=== PATIENT | female | born 1945 | race Caucasian/White ===

== ENCOUNTER 2024-10-20 13:46 | Outpatient (REF) | payer MEDICARE, SELFPAY ==
--- OUTSIDE RECORDS SUMMARY | 2024-10-20 07:45 | XMS_ITS ---
Author Organization Edilberto Cedeno MD Address [address] [place], [place] [id number] Care Team Providers Care Sleever Name Role Phone Edilberto Cedeno Primary Care Provider [phone] Allergies Allergen (clinical drug ingredient) Drug/Non Drug Allergy documented on EMR Reaction Allergy Type Onset Date Status nitroglycerin NTG (uncoded) unresponsive Allergy Active REASON FOR VISIT ? Food poisoning not vomiting gassy positive for Covid 09-30-24, Accompanied by daughter Medications Medication SIG (Take, Route, Frequency, Duration) Notes Start Date End Date Status Cranberry Fruit 475 MG Orally Active Fish Oil 1200 MG 1 capsule Orally Onc e a day Active Methenamine Hippurate 1 GM 1 tablet Orally Twice a day Active Aspir-81 81 MG 1 tablet Orally Once a day Not-Taking Multi-Day 1 tablet Orally Once a day Active Magnesium 200 MG 2 tablets with a kevin l Orally Once a day for 30 day(s) Active Calcium + D 500-1000-40 MG-UNT-MCG Orally Active Milk Thistle 200 MG 2 caps BID Active Problems Problem Type SNOMED Code ICD Code Onset Dates Problem Status W/U Status Risk Notes Problem Diverticulitis (18359952) Diverticulitis (K57.92) Active confirmed Vital Signs Blood pressure systolic 100 mm Hg 10/21/19 25 Blood pressure diastolic 62 mm Hg 025 Height 68 in 10/20/2024 Weight 137 lbs 10/20/2024 BMI 20.83 kg/m2 10/20/2024 weight is down 3 pounds sin e 06-16-24 Encounters Encounter Location Date Provider Diagnosis Edilberto Cedeno MD [address] [place] [address] [place] [phone] 10/20/2024 Edilberto Cedeno Palpitation R00.2 ; Diverticulitis K57.92 and Blood tests prior to treatment or procedure Z01.812 Assessments Encounter Date Diagnosis (ICD Code) Assessment Notes Treatment Notes Treatment Clinical Notes Section Notes 10/20/2024 Palpitation (ICD-10 - R00.2) not clear as to the couse of that will observe 10/20/2024 Diverticulitis (ICD-10 - K57.92) pending diagnostic testing, order faxed to [facility] 10/20/2024 Blood tests prior to treatment or procedure (ICD-10 - Z01.812) Plan Of Treatment Treatment Notes Assessment Notes Palpitation not clear as to the couse of that will observe Diverticulitis pending diagnostic t esting, order faxed to [facility] Pending Test Test Name Order Date CT ABD & PELVIS WITH CONTRAST 10/20/2024 Blood Urea Nitrogen 10/20/2024 Creatinine 10/20/2024 Next Appt Details Follow Up: 2 - 3 Days, Reaso n: Provider Name:Edilberto arroyo, 10/23/2024 11:45:00 AM, [address] [place] [address], [address] [place] [address], [phone], Provider Name:Edilberto arroyo, 02/05/2025 07:15:00 AM, [address] [place] [address], [address], [phone], Provider Name:Edilberto arroyo, 02/12/2025 01:00:00 PM, [address] [place] [address], [address], [phone], Progress Notes * Martha MORALES DDOB:[birth year] (79 yo F)Acc No.[id number]:10/20/2024 Progress Notes Patient: Martha ERIC Provider: Judson Cedeno MD :1945 A ge:79 Y S ex:Female Date:10/20/2024 Address: [address], [place], [id number] Subjective: * Chief Complaints: * 1 . ? Food poisoning not vomiting gassy positive for Covid 7-8-25. 2. Accompanied by daughter. * HPI: S ymptom(s): patient is a 79 yo female had covid 7/8 didn't take paxlovid/ not vomiting. had a little nausea. eating causes pain in stomach and gas. took mom because was constipated first. took tums. and it helped a little. stool is not normal small brown stools. been going on for 3 days. heart was going fast when she was carrying paint up and down stairs. * ROS: G eneral/Constitutional: Denies C hills. D enies F atigue. D enies F ever. D enies H eadache. E NT: Denies S ore throat. R espiratory: Denies C ough. D enies S hortness of breath at rest. D enies S hortness of breath with exertion. G astrointestinal: Admits A bdominal pain. A dmits D iarrhea. A dmits N ausea. D enies V omiting. 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 Beck, Colonoscopy with Dr Agudelo done 04/23/17 - repeat 10 years. * Medications: T aking Milk Thistle 200 MG Capsule 2 caps BID , Taking Magnesium 200 MG Tablet 2 tablets with a meal Orally Once a day , Taking Calcium + D 500-1000-40 MG-UNT-MCG Tablet Chewable Orally , Taking Cranberry Fruit 475 MG Capsule Orally , Taking Fish Oil 1200 MG Capsule 1 capsule Orally Once a day , Taking Multi-Day Tablet 1 tablet Orally Once a day , Taking Methenamine Hippurate 1 GM Tablet 1 tablet Orally Twice a day , Not-Taking/PRN Aspir-81 81 MG Tablet Delayed Release 1 tablet Orally Once a day * Allergies: N TG: unresponsive. Objective: * Vitals: H t: 68, Wt: 137, BMI:20.83, BP:100/62, Wt-k.14. weight is down 3 pounds since 06-16-24. * Examination: G eneral Examination: GENERAL APPEARANCE: a lert, well hydrated, in no distress.? HEAD: n ormocephalic. SKIN: g ood turgor. HEART: n o murmurs, rubs, gallops, regular rate and rhythm.? LUNGS: n o wheezes, rales, rhonchi, good air movement, clear to auscultation bilaterally. ABDOMEN: a bnormal with mild diffuse tenderness. no rebound. Assessment: * Assessment: 1. P alpitation - R00.2 (Primary) 2 . D iverticulitis - K57.92 ?3. B lood tests prior to treatment or procedure - Z01.812 Plan: * Treatment: 2. D iverticulitis I maging: CT ABD & PELVIS WITH CONTRAST Notes: pending diagnostic testing, order faxed to [facility] 3. B lood tests prior to treatment or procedure L AB: Blood Urea Nitrogen L AB: Creatinine * Procedure Codes: 3 6415 VENIPUNCT, ROUTINE* * Follow Up: 2 - 3 Days * * The named appointment provid er may or may not be the originator of this progress note, and it is not deemed complete until electronically signed by the appointment provider. Sign off status: Pending * Provider: Judson Cedeno MD Date: 10/20/2024 Generated for Boo barrera/Jarad/eTransmitting on: 10/20/2024 02:35 PM EDT History and Physical Notes * HPI (History of Present Illness) Category Sub-Category Detail Notes Category Not es Symptom(s) patient is a 79 yo female had covid 80 didn't take paxlovid/ not vomiting. had a little nausea. eating causes pain in stomach and gas. took mom because was constipated first. took tums. and it helped a little. stool is not normal small brown stools. been going on for 3 days. heart was going fast when she was carrying paint up and down stairs. Examination Category Sub-Category Detail Notes Category Not es General Examination GENERAL APPEARANCE: alert, w ell hydrated, in no distress HEAD: normocephalic HEART: no murmurs, rubs, ga llops, regular rate and rhythm LUNGS: no wheezes, rales, r honchi, good air movement, clear to auscultation bilaterally ABDOMEN: abnormal with mild d iffuse tenderness. no rebound SKIN: good turgor
--- OUTSIDE RECORDS SUMMARY | 2024-10-20 14:35 | XMS_ITS | Encounter Summary ---
Author Organization [facility] Address [address] [place] [address] Phone Care Team Providers Care Paramedic Supervisor Name Role Phone Ermias Perez MD Unavailable Chai Welch MD Unavailable Deonna Swain PA-C Unavailable Deonna Chandra MD Unavailable Eliot Youssef MD Unavailable Rasheeda Nelson ADMINISTRATIVE SUPPORT ASSOCIATE Unavailable Radha Monique ADMINISTRATIVE SUPPORT ASSOCIATE Unavailable [phone] Edilberto Cedeno MD Unavailable Francisco Calderon MD Unavailable [phone] Oleg Castano MD Unavailable Chad Alberto MD Unavailable [phone] Lasha Putnam MD Unavailable Marquise Moss MD Unavailable Edilberto Cedeno MD Primary Care Provider Encounter Details Date Type Department Care Team (Late st Contact Info) Description 05/02/2020 Procedure Pass Echo Lab [address] [place] [address] Social History Tobacco Use Types Packs/Day Years Used Date Smoking Tobacco: Former Smokeless Tobacco: Never Alcohol Use Standard Drinks/Week Comments Yes 7 (1 standard drink = 0.6 oz pur e alcohol) Comments No Sex and Gender Information Value Date Recorded Sex Assigned at Not on file Legal Sex Female 5:19 PM EST Gender Identity Not on file Sexual Orientation Not on file documented as of this encounter Plan of Treatment Upcoming Encounters Date Type Department Care Team (Late st Contact Info) Description 01/23/2024 Procedure Pass [facility] [address] [place] [address] 11/20/2024 12:45 PM EDT Appointment Echo Lab [address] [place] [address] Jazzmine Lo PA-C [address] [place] [address] 12/18/2024 2:00 PM EDT Office Visit [facility] [address] [place] [address] [address] Floor, [address] [place] [address] Meghan Akhtar CNP [address] [place] [address] 04/02/2025 1:15 PM EST Appointment [facility] [address] [place] [address] Ab Phan MD [address] [place] [address] documented as of this encounter Visit Diagnoses Not on filedocumented in this encounter Additional Health Concerns 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/01/2017 10/20/2022 1:21 AM EDT documented as of this encounter Care Teams Paramedic Supervisor Relationship Specialty Start Date End Date Edilberto Cedeno MD [address] [place] [address] [place] [address] PCP - General Internal Medicine 02/14/17 Ermias Perez MD [address] [place] [address] [email or web address] Historical LMR Provider 01/08/17 04/02/21 Chai Welch MD [address] [place] [address], [address] [place] [address] [email or web address] Historical LMR Provider 01/08/17 04/02/21 Deonna Swain PA-C [address] [place] [address] [email or web address] Historical LMR Provider 01/08/17 04/02/21 Deonna Chandra MD [address] [place] [address], [address] [place] [address] [email or web address] Historical LMR Provider 01/08/17 2 Eliot Youssef MD [address] [place] [address], [address] [place] [address] [email or web address] Historical LMR Provider 01/08/17 Rasheeda Nelson NP [address] [place] [address] [email or web address] Historical LMR Provider 01/08/17 2 Radha Monique NP [address] [place] [address] Historical LMR Provider 01/08/17 Edilberto Cedeno MD [address] [place] [address] [place] [address] Historical LMR Provider 01/08/17 Francisco Calderon MD [address] [place] [address], [address] [place] [address] Historical LMR Provider 01/08/17 04/02/21 Oleg Castano MD [address] [place] [address] [address] [place] [address] Historical LMR Provider 01/08/17 04/02/21 Chad Alberto MD [address] [place] [address], [address] [place] [address] Historical LMR Provider 01/08/17 2 Lasha Putnam MD [address] [place] [address] Historical LMR Provider 01/08/17 Marquise Moss MD [address] [place] [address] Historical LMR Provider 01/08/17 04/02/21 documented as of this encounter Additional Source Comments The information contained in this document represents components of the legal health record. It is not the complete legal health record.[facility]
[2024-10-20 14:36] LABS: Blood Urea Nitrogen 17 mg/dL (9-16); Estimated Glomerular Filt Rate > 60
== END 2024-10-20 13:47 | disposition home or self-care (01) ==
LOC: HO.LNP 13:46
PROVIDERS: Visit Provider Internal Medicine
DX: Z01.812 Encounter for preprocedural laboratory examination (principal)
CPT/HCPCS: 82565; 84520